=== PATIENT | female | born 1985 | race Caucasian/White ===

== ENCOUNTER 2016-11-30 16:49 | Emergency (ER) | payer SELFPAY ==
[2016-11-30 18:22] LABS: Basophils % (Auto) 1.3 % (0.0-1.8); Eosinophils % (Auto) 2.5 % (0.0-4.3); Hematocrit 36.5 % (30.3-42.9); Hemoglobin 12.4 gm/dl (10.1-14.3); Mean Corpuscular HGB Conc 34 % (30-34); Mean Corpuscular Hemoglobin 33 pg (28-32); Mean Corpuscular Volume 97 fl (79-97); Platelet Count 383 K/mm3 (140-440); Red Blood Count 3.76 M/mm3 (3.65-5.03); Red Cell Distribution Width 14.2 % (13.2-15.2); White Blood Count 7.8 K/mm3 (4.5-11.0)
[2016-11-30 18:37] LABS: Alanine Aminotransferase 20 units/L (7-56); Albumin 3.8 g/dL (3.9-5); Albumin/Globulin Ratio 1.4 %; Alkaline Phosphatase 77 units/L (35-129); Anion Gap 17 mmol/L; Bilirubin,Total < 0.20 mg/dL (0.1-1.2); Blood Urea Nitrogen 10 mg/dL (7-17); Calcium 8.7 mg/dL (8.4-10.2); Carbon Dioxide 23 mmol/L (22-30); Chloride 102.2 mmol/L (98-107); Glucose 74 mg/dL (65-100); Lipase 51 units/L (13-60); Potassium 4.1 mmol/L (3.6-5.0); Sodium 138 mmol/L (137-145); Total Protein 6.6 g/dL (6.3-8.2)
[2016-11-30 19:10] LABS: Bilirubin,Urine NEG (Negative); Blood,Urine NEG (Negative); Ketones,Urine NEG (Negative); Leukocyte Esterase,Urine NEG (Negative); Nitrite,Urine NEG (Negative); Protein,Urine <15 mg/dL mg/dL (Negative); RBC,Urine < 1.0 /HPF (0.0-6.0); Urobilinogen,Urine < 2.0 mg/dL (<2.0); WBC,Urine < 1.0 /HPF (0.0-6.0)
--- NOTE | 2016-11-30 19:37 | Emergency Department Report ---
ED Abdominal Pain HPI - General Chief Complaint: Abdominal Pain Stated Complaint: LOWER ABD PAIN Time Seen by Provider: 11/30/16 19:19 Source: patient, EMS Mode of arrival: Ambulatory Limitations: No Limitations - History of Present Illness Initial Comments: 31 years old female came from [facility] for assessment of abdominal pain that is staying alone for 4 days. Patient stated that she has a [employer] patient fell in the shower hit her abdomen. No other injury at this moment. Denied any nausea or vomiting or diarrhea. No dizziness no head injury or back injury. MD Complaint: abdominal pain -: days(s) (4) Location: suprapubic Severity: moderate Severity scale (0 -10): 7 Quality: sharp Consistency: constant - Related Data Home Medications Medication Instructions Recorded Confirmed Last Taken Gabapentin [Gralise] 600 mg PO QDAY 11/30/16 11/30/16 1 Day Ago 600 OXcarbazepine [Trileptal] 300 mg PO BID 11/30/16 11/30/16 1 Day Ago 300 clonazePAM [KlonoPIN] 2 mg PO BID 11/30/16 11/30/16 3 Days Ago 2 Allergies Allergy/AdvReac Type Severity Reaction Status Date / Time haloperidol lactate AdvReac Mild Nausea Verified 11/30/16 17:40 [From Haldol] clorazepate dipotassium AdvReac Itching Verified 11/30/16 17:41 [From Tranxene T-Tab] cyclobenzaprine HCl AdvReac Itching Verified 11/30/16 17:41 [From Flexeril] haloperidol [From Haldol] AdvReac Nausea Verified 11/30/16 17:39 metaxalone [From Skelaxin] AdvReac Itching Verified 11/30/16 17:42 morphine AdvReac Itching Verified 11/30/16 17:42 Penicillins AdvReac Itching Verified 11/30/16 17:40 Sulfa (Sulfonamide AdvReac Itching Verified 11/30/16 17:40 Antibiotics) ED Review of Systems ROS: Stated complaint: LOWER ABD PAIN Other details as noted in HPI Comment: All other systems reviewed and negative Constitutional: no symptoms reported ENT: denies: ear pain Respiratory: no symptoms reported. denies: cough, orthopnea, shortness of breath, SOB with exertion Cardiovascular: denies: chest pain, palpitations, dyspnea on exertion Gastrointestinal: abdominal pain. denies: nausea, vomiting, diarrhea, constipation Musculoskeletal: denies: back pain, joint swelling, arthralgia, myalgia Neurological: denies: headache, weakness, numbness, paresthesias ED Past Medical Hx - Past Medical History Previous Medical History?: Yes Hx Hypertension: No Hx CVA: No Hx Heart Attack/AMI: No Hx Congestive Heart Failure: No Hx Diabetes: No Hx Deep Vein Thrombosis: No Hx Pulmonary Embolism: No Hx GERD: No Hx Liver Disease: Yes Hx Renal Disease: No Hx of Cancer: No Hx Sickle Cell Disease: No Hx Arthritis: No Hx Headaches / Migraines: No Hx Seizures: Yes Hx Kidney Stones: No Hx Psychiatric Treatment: Yes Hx Asthma: No Hx COPD: No Hx Tuberculosis: No Hx Dementia: No Hx HIV: No - Surgical History Past Surgical History?: Yes Hx Coronary Stent: No Hx Open Heart Surgery: No Hx Pacemaker: No Hx Internal Defibrillator: No Hx Cholecystectomy: No Hx Appendectomy: No Hx Breast Surgery: No Additional Surgical History: galldbladder, tonsils - Social History Smoking Status: Current Every Day Smoker Substance Use Type: None - Medications Home Medications: Home Medications Medication Instructions Recorded Confirmed Last Taken Type Gabapentin [Gralise] 600 mg PO QDAY 11/30/16 11/30/16 1 Day Ago History 600 OXcarbazepine [Trileptal] 300 mg PO BID 11/30/16 11/30/16 1 Day Ago History 300 clonazePAM [KlonoPIN] 2 mg PO BID 11/30/16 11/30/16 3 Days Ago History 2 ED Physical Exam - General Limitations: No Limitations General appearance: alert, in no apparent distress - Head Head exam: Present: atraumatic, normocephalic - Eye Eye exam: Present: normal appearance Pupils: Present: normal accommodation - ENT ENT exam: Present: normal exam, normal orophraynx, mucous membranes moist, normal external ear exam - Neck Neck exam: Present: normal inspection, other. Absent: tenderness, meningismus, lymphadenopathy, thyromegaly - Respiratory Respiratory exam: Present: normal lung sounds bilaterally. Absent: respiratory distress, wheezes, rales, rhonchi, chest wall tenderness, accessory muscle use - Cardiovascular Cardiovascular Exam: Present: regular rate, normal rhythm, normal heart sounds - GI/Abdominal GI/Abdominal exam: Present: soft, tenderness, normal bowel sounds, other ( ecchymosis on the lower abdomen). Absent: guarding, rebound, rigid, organomegaly, mass, bruit, pulsatile mass, hernia - Back Exam Back exam: Present: normal inspection. Absent: full ROM, tenderness, CVA tenderness (R), CVA tenderness (L), muscle spasm, paraspinal tenderness, vertebral tenderness - Neurological Exam Neurological exam: Present: alert, oriented X3, CN II-XII intact, normal gait - Psychiatric Psychiatric exam: Present: agitated, manic - Skin Skin exam: Present: warm, intact, normal color ED Course Vital Signs 11/30/16 11/30/16 11/30/16 17:20 17:26 17:30 Temperature 98.6 F Pulse Rate 93 H 98 H 93 H Respiratory 13 18 15 Rate Blood Pressure 127/81 Blood Pressure 126/81 [Right] O2 Sat by Pulse 98 96 Oximetry 11/30/16 11/30/16 11/30/16 17:34 18:00 18:30 Temperature 98.6 F Pulse Rate 98 H Respiratory 18 Rate Blood Pressure 126/81 127/81 130/84 Blood Pressure [Right] O2 Sat by Pulse 98 96 97 Oximetry 11/30/16 11/30/16 11/30/16 18:48 19:00 19:30 Temperature Pulse Rate 88 88 89 Respiratory 18 15 12 Rate Blood Pressure 126/76 136/91 Blood Pressure 130/84 [Right] O2 Sat by Pulse 96 Oximetry 11/30/16 19:46 Temperature Pulse Rate Respiratory 18 Rate Blood Pressure Blood Pressure [Right] O2 Sat by Pulse 98 Oximetry - Reevaluation(s) Reevaluation #1: 11/30/16 22:39 Patient stated that she is feeling better she'll be discharged back to the [facility] facility to prolong his her primary care physician. ED Medical Decision Making - Lab Data Result diagrams: 11/30/16 18:05 11/30/16 18:05 Critical care attestation.: If time is entered above; I have spent that time in minutes in the direct care of this critically ill patient, excluding procedure time. ED Disposition Clinical Impression: Abdominal pain Disposition: [id number]/TX-[id number] PSY HOSP/PSY UNIT Is pt being admited?: No Does the pt Need Aspirin: No Condition: Stable Instructions: Abdominal Pain (ED) Referrals: PRIMARY CARE, [Primary Care Provider] - 3-5 Days
--- NOTE | 2016-11-30 22:16 | Cat Scan Report ---
FINAL REPORT EXAM: CT ABDOMEN PELVIS WO CON HISTORY: ABDOMINAL PAIN COMPARISON: None available. TECHNIQUE: Contiguous axial images were obtained. Additional sagittal and coronal reformatted images were obtained. FINDINGS: Nonspecific linear opacities at the lung bases which may reflect mild atelectasis or edema. Gallbladder surgically absent. Liver, spleen, pancreas are grossly unremarkable. No adrenal mass. No nephrolithiasis or hydronephrosis. Aorta and IVC are normal in caliber. No distal ureteral urinary bladder calculi. Uterus and ovaries are grossly unremarkable. Trace fluid in the pelvis within physiologic limits. Moderate large amount of stool in the colon. No focal inflammatory changes the bowel. Small appendicolith within the appendix. No fat stranding or fluid to suggest acute inflammation the appendix. The appendix is normal in caliber measuring 4 millimeters in diameter. Lumbar vertebral body heights are preserved. Bony pelvis is grossly intact. IMPRESSION: No focal inflammatory changes of the abdomen and pelvis. Moderate large amount of stool in the colon. Large and small bowel loops normal in caliber. The appendix is normal in caliber. Trace fluid in the pelvis within physiologic limits. Uterus and ovaries are otherwise unremarkable. Nonspecific patchy linear opacities at the lung bases most compatible with atelectasis. Minimal edema cannot be excluded.
[2016-11-30 22:50] VITALS: BP 126/81
== END 2016-12-01 01:25 ==
LOC: ED 16:49
DX: R10.30 Lower abdominal pain, unspecified (principal); F17.210 Nicotine dependence, cigarettes, uncomplicated; Z88.6 Allergy status to analgesic agent; Z88.0 Allergy status to penicillin; Z88.2 Allergy status to sulfonamides; Z88.8 Allergy status to other drugs, medicaments and biological substances
CPT/HCPCS: 36415; 74176; 80053; 81001; 81025; 83690; 85025; 99285